=== PATIENT | male | born 1940 | race Caucasian/White ===

== ENCOUNTER 2019-02-23 07:27 | Day surgery (SDC) | payer MEDICARE ==
[2019-02-23] MEDS ORDERED: PROPOFOL 10 MG/ML VIAL IV ONE (07:28)
[2019-02-23] MEDS ORDERED: LIDOCAINE 2% MDV (20MG/ML) 20ML VIAL IV ONE (07:28)
--- NOTE | 2019-02-24 09:00 | Operative Note ---
OPERATION: COLONOSCOPY. PREOPERATIVE DIAGNOSIS: Personal history of colon polyps. POSTOPERATIVE DIAGNOSIS: Sigmoid diverticulosis and hemorrhoids. PROCEDURE: After informed consent was obtained from the patient, he was placed in the left lateral decubitus position in the endoscopy suite, sedated and monitored by the department of anesthesia. Digital rectal exam was unremarkable. A well-lubricated [id number] colonoscope was inserted into the rectum and advanced to the cecum. Preparation quality was excellent. The cecum, cecal bulb, and the ileocecal valve were inspected and were unremarkable. The cecal cap was unremarkable. The ascending colon, transverse colon, and descending colon were free of inflammatory changes, mass, lesions, or polyps. The sigmoid colon demonstrated [id number] diverticular changes. The rectum was unremarkable in forward and in J-turn views other than hemorrhoids being observed. The endoscope was straightened, the rectal ampulla deflated, and the endoscope was removed. RECOMMENDATIONS: I would suggest the patient follow a high-fiber diet. Based on his age and negative exam, I do not believe a surveillance exam would be helpful. If symptoms warrant, it can be reconsidered. In the meantime, he should resume his medications and try to follow a high-fiber diet. As always, thank you for allowing me to participate in the healthcare of your patients. ANYI
== END 2019-02-23 09:30 | disposition home or self-care (01) ==
LOC: HOP 07:27
PROVIDERS: ATTEND Internal Medicine Gastroenterology
DX: Z12.11 Encounter for screening for malignant neoplasm of colon (principal); Z86.010 Personal history of colon polyps; K57.30 Diverticulosis of large intestine without perforation or abscess without bleeding; E78.00 Pure hypercholesterolemia, unspecified
CPT/HCPCS: 00812; G0105